=== PATIENT | female | born 1955 | race African-American/Black ===

== ENCOUNTER 2017-02-17 10:54 | Day surgery (SDC) | payer OTHER ==
--- NOTE | ~2017-02-17 | EGD ---
EGD REPORT [facility] [address] [id number] NAME: MONSERRAT MCLEOD : [birth year] STATUS : REG [facility] [place] PAT#: [id number] AGE: 61 ADM/REG DATE : 02/17/17 MR#: [id number] REPORT SERV DATE: 02/17/17 DICTATED BY: HARRISON ARMIJO DATE: 02/17/17 REPORT STATUS : Draft TRANSCRIBED BY: [facility] DATE: 02/17/17 Endoscopy Center Patient Name: Monserrat Mcleod Date of : 1955 Attending MD: HARRISON ARMIJO MD Procedure Date No Time: 02/17/2017 Procedure: Colonoscopy Indications: Screening for colorectal malignant neoplasm Referring MD: ALINE HERNANDEZ Medicines: Propofol per Anesthesia Complications: No immediate complications. Procedure: After I obtained informed consent, the scope was passed under direct vision. Throughout the procedure, the patient's blood pressure, pulse, and oxygen saturations were monitored continuously. The PCF [id number] was introduced through the anus and advanced to the cecum, identified by appendiceal orifice and ileocecal valve. The colonoscopy was performed without difficulty. The patient tolerated the procedure well. The quality of the bowel preparation was good. Findings: The perianal and digital rectal examinations were normal. A sessile polyp was found in the cecum. The polyp was 3 mm in size. The polyp was removed with a cold snare. Resection and retrieval were complete. A sessile polyp was found at the hepatic flexure. The polyp was 8 mm in size. The polyp was removed with a cold snare. Resection and retrieval were complete. Internal hemorrhoids were found during retroflexion and were Grade I (internal hemorrhoids that do not prolapse). Impression: - One 3 mm polyp in the cecum. Resected and retrieved. - One 8 mm polyp at the hepatic flexure. Resected and retrieved. - Internal hemorrhoids. Recommendation: - Await pathology results. - Patient has a contact number available for emergencies. The signs and symptoms of potential delayed complications were discussed with the patient. Return to normal activities tomorrow. Written discharge instructions were provided to the patient. - Regular diet. - Continue present medications. EGD REPORT [address] [address] NAME: MONSERRAT MCLEOD FELT : [birth year] STATUS : REG [facility] [place] PAT#: [id number] AGE: 61 ADM/REG DATE : 02/17/17 MR#: [id number] REPORT SERV DATE: 02/17/17 DICTATED BY: HARRISON ARMIJO DATE: 02/17/17 REPORT STATUS : Draft TRANSCRIBED BY: [employer] DATE: 02/17/17 - Repeat colonoscopy for surveillance based on pathology results. Procedure Code(s): --- Professional --- 53242, Colonoscopy, flexible, proximal to splenic flexure; with removal of tumor(s), polyp(s), or other lesion(s) by snare technique Diagnosis Code(s): --- Professional --- D12.3, Benign neoplasm of transverse colon D12.0, Benign neoplasm of cecum K64.0, First degree hemorrhoids Z12.11, Encounter for screening for malignant neoplasm of colon CPT copyright 2013 [employer]. All rights reserved. The codes documented in this report are preliminary and upon meter calibrator review may be revised to meet current compliance requirements. HARRISON ARMIJO MD 02/17/2017 12:43 PM This report has been signed electronically. Number of Addenda: 0 Note Initiated On: 02/17/2017 12:20 PM Scope Withdrawal Time 0 hours 6 minutes 3 seconds [address] [id number]
[~2017-02-17 10:54] MED LIST: ASAB PO; AUG875 PO; BENICAR HCT1 TA2 PO; DIOV160 PO; FLORASTOR250 MG PO; K-TABS10 MEQ PO; NORV10 PO; SPIRO25 PO; TOPXL50 PO
== END 2017-02-17 23:59 | disposition home or self-care (01) ==
LOC: DMU 10:54
PROVIDERS: Internal Medicine Gastroenterology
PROC: 0DBL8ZZ Excision of Transverse Colon, Via Natural or Artificial Opening Endoscopic (ICD-10-PCS; 2017-02-17)
PROC: 0DBH8ZZ Excision of Cecum, Via Natural or Artificial Opening Endoscopic (ICD-10-PCS; principal; 2017-02-17 12:30)
DX: Z12.11 Encounter for screening for malignant neoplasm of colon (principal); D12.3 Benign neoplasm of transverse colon; K63.5 Polyp of colon; K64.0 First degree hemorrhoids; I89.0 Lymphedema, not elsewhere classified; I82.4Z1 Acute embolism and thrombosis of unspecified deep veins of right distal lower extremity; Z98.890 Other specified postprocedural states; Z79.82 Long term (current) use of aspirin
CPT/HCPCS: 88305